=== PATIENT | female | born 1980 | race Caucasian/White ===

== ENCOUNTER 2022-01-21 17:27 | Emergency (ER) | payer MEDICARE, MEDICAID, SELFPAY ==
[2022-01-21 17:35] VITALS: BP 125/77; PULSE 90; TEMP 36.9; O2SAT 97
--- NOTE | 2022-01-21 18:00 | DI.CT_ITS ---
Exam(s) CT LUMBAR SPINE WO EXAM: CT LUMBAR SPINE WO CLINICAL HISTORY: left lower ext paresthesia now right LE paresthesi. TECHNIQUE: Imaging Protocol: Axial computed tomography images with coronal and sagittal reformatted images were created and reviewed COMPARISON: No exams were available for comparison FINDINGS: Bones: The last intervertebral disc space is designated the L5/S1 level for the numbering purpose of this examination. No acute fracture or subluxation is seen. There is mild narrowing of the T12-L1 a nd L1-L2 disc spaces. Endplate osteophytes are seen at multiple levels throughout the lumbar spine. Alignment is satisfactory. No fracture is seen. T12-L1: No disc herniations or bulges are present. No central spinal canal or neural foraminal steno sis. L1-2: No disc herniations or bulges are present. No central spinal canal or neural foraminal stenosi s. L2-3: No disc herniations or bulges are present. No central spinal canal or neural foraminal stenosi s. L3-4: No disc herniations or bulges are present. No central spinal canal or neural foraminal stenosi s. L4-5: No disc herniations or bulges are present. No central spinal canal or right neural foraminal s tenosis. Aywh-af-aeoiutum left neural foraminal stenosis. L5-S1: No disc herniations or bulges are present. No central spinal canal stenosis. Moderate right neural foraminal stenosis is present. There is mild left neural foraminal stenosis. Soft Tissues: The visualized SI joints and sacrum are will maintained. The paraspinal soft tissues a re unremarkable. The patient is status post cholecystectomy. IMPRESSION: Degenerative changes in the lumbar spine resulting in bilateral L5-S1 neural foraminal stenosis, righ t greater than left and left L4-5 neural foraminal stenosis. RADIATION DOSE DELIVERED: 1,377.58mGy.cm Total DLP 1,377.58mGy.cm Total DLP DATA REPOSITORY: All CT scans at this facility are submitted to the National Radiology Data Registry (NRDR) Dose Index Registry (DIR) with the [employer] ([employer]). RADIATION OPTIMIZATION: All CT scans at this facility use at least one of these dose optimization te chniques: automated exposure control; mA and/or kV adjustment per patient size (includes targeted exa ms where dose is matched to clinical indication); or iterative reconstruction.
--- NOTE | 2022-01-21 18:00 | DI.CT_ITS ---
Exam(s) CT HEAD WO EXAM: CT HEAD WO CLINICAL HISTORY: bilat lower ext paresthesia. TECHNIQUE: Imaging Protocol: Axial computed tomography images with coronal and sagittal reformatted images were created and reviewed COMPARISON: No exams were available for comparison FINDINGS: Ventricles and Extra axial spaces: Normal in size and morphology for the patient's age. Hemorrhage: None. Cerebral parenchyma: Normal. Midline shift: None. Brainstem/Cerebellum: Normal. Calvarium: Normal. Visualized Paranasal sinuses/Mastoids: Clear. Soft Tissues: Unremarkable. IMPRESSION: No acute intracranial process. RADIATION DOSE DELIVERED: 805mGy.cm Total DLP DATA REPOSITORY: All CT scans at this facility are submitted to the National Radiology Data Registry (NRDR) Dose Index Registry (DIR) with the [employer] ([employer]). RADIATION OPTIMIZATION: All CT scans at this facility use at least one of these dose optimization te chniques: automated exposure control; mA and/or kV adjustment per patient size (includes targeted exa ms where dose is matched to clinical indication); or iterative reconstruction.
--- NOTE | 2022-01-21 18:20 | ED.GENADUL_ITS ---
Discharge Plan Disposition Patient Disposition: HOME Condition: Stable Discharge Details Clinical Impression: Back pain Primary Care Provider: Megan Christianson ED Provider: Alan Olivarez Home Meds and New Rx's Prescriptions: New cyclobenzaprine 10 mg tablet 10 mg PO TID PRNQty: 20 0RF gabapentin 300 mg capsule 300 mg PO TID Qty: 30 1RF Discharge Instructions Instructions: Back Pain (ED) Additional Instructions: your lab work and cat scan of your head did not show any concerning findings at this time, your cat scan of your lower back showed disc bulging which is likely the cause ofyour pain continue taking ibuprofen and tylenol as needed and follow dosing instructions on packaging do not drive if you take the cyclobenzaprine follow up with your primary care provider within 1-2 weeks if you feel more ill, have fevers or difficulty breathing return to the emergency department you should call the radiology department tomorrow to set up an ultrasound of your legs Medical Decision Making <Minesh Stahl MD - Last Filed: 01/21/22 20:08> 41-year-old female presents with paresthesias of bilateral lower extremities left greater than right over the past 3 weeks, has had multiple falls due to leg weakness and discomfort over the past several weeks, no injuries from those incidences, has been seen at multiple outside hospitals for similar events denies any definitive diagnosis, patient is alert oriented afebrile nontoxic no signs of deformity to any extremities, no midline spinal tenderness, does have some paraspinal lumbar muscle spasm, no signs of infection or trauma, 5 out of 5 strength bilateral upper and lower extremities, no ataxia, slight paresthesia/decreased sensation to light touch in the left lower extremity compared to right, no bowel or bladder dysfunction or saddle anesthesia or paresthesia. Does have a history of bulging disc. Consider lumbar bulging disc versus sciatica versus less likely myositis versus unlikely cauda equina or spinal cord impingement, low suspicion for fracture of lower extremity or pel vis, lower suspicion for stroke. Will obtain labs screening imaging will provide analgesia anti-inflammatory. Close reassessment likely will be discharged home with close follow-up 20: 7 patient feeling better after meds, pending imaging results for disposition <Alan Olivarez MD - Last Filed: 01/21/22 21:14> 41-year-old female presents with paresthesias of bilateral lower extremities left greater than right over the past 3 weeks, has had multiple falls due to leg weakness and discomfort over the past several weeks, no injuries from those in cidences, has been seen at multiple outside hospitals for similar events denies any definitive diagnosis, patient is alert oriented afebrile nontoxic no signs of deformity to any extremities, no midline spinal tenderness, does have some paraspinal lumbar muscle spasm, no signs of infection or trauma, 5 out of 5 strength bilateral upper and lower extremities, no ataxia, slight paresthesia/decreased sensation to light touch in the left lower extremity compared to right, no bowel or bladder dysfunction or saddle anesthesia or paresthesia. Does have a history of bulging disc. Consider lumbar bulging disc versus sciatica versus less likely myositis versus unlikely cauda equina or spinal cord impingement, low suspicion for fracture of lower extremity or pelvis, lower suspicion for stroke. Will obtain labs screening imaging will provide analgesia anti-inflammatory. Close reassessment likely will be discharged home with close follow-up 20: 7 patient feeling better after meds, pending imaging results for disposition ct head unremarkable, ct lumbar spine shows several foraminal stenosis greater on the right at l5/s1 and also l4/l5. She has no saddle anesthesia and is urinating normally so doubt cauda equina and no fevers or ivdu so doubtabscess. Discussed results with the patient and she is stable for d/c, will start gabapentin and to help with sleep and possible associated muscle spasm cyclobenzaprine. She states she feels her legs are more swollen recently as well, has no appreciable swelling or pitting edema, no calf tenderness so unlikely dvt, but will have her return to have an u/s done tomorrow. Advised to f/u with pcp and return precautions given HPI <Minesh Stahl MD - Last Filed: 01/21/22 20:08> General Date/Time Provider Initiated Documentation: 01/21/22 17:33 . HPI Narrative: 41-year-old female presents with left lower extremity paresthesia over the past 3 weeks now involving right lower extremity, has had drop attacks where she falls to the ground, no injuries from these incidences, can ambulate without assistance, denies bowel or bladder dysfunction denies saddle anesthesia or paresthesia. Was evaluated multiple outside hospitals for similar events within the last couple of months. Does not follow-up with a neurologist. Does endorse pain from her lower back down her buttocks onto the left side and endorses history of nerve impingement as a younger adult Related Data Home Medications Medication Instructions Recorded Confirmed cyclobenzaprine 10 mg tablet 10 mg PO TID PRN #20 tabs 01/21/22 gabapentin 300 mg capsule 300 mg PO TID #30 caps 01/21/22 Previous Rx's Medication Instructions Recorded cyclobenzaprine 10 mg tablet 10 mg PO TID PRN #20 tabs 01/21/22 gabapentin 300 mg capsule 300 mg PO TID #30 caps 01/21/22 Allergies Allergy/AdvReac Type Severity Reaction Status Date / Time codeine Allergy Swelling/Ed Unverified 01/21/22 17:43 stephanie doxycycline Allergy Hives Unverified 01/21/22 17:43 egg Allergy Swelling/Ed Unverified 01/21/22 17:43 stephanie General Stated Complaint: Orthopedic CADEN: 3 Review of Systems <Minesh Stahl MD - Last Filed: 01/21/22 20:08> Narrative: Review of Systems Constitutional: negative Eyes: negative ENT: negative Cardiovascular: negative Respiratory: negative Gastrointestinal: negative : negative Musculoskeletal: Back pain, buttock pain, leg paresthesia Skin: negative Neurologic: Leg paresthesia Psych: negative PFSH <Minesh Stahl MD - Last Filed: 01/21/22 20:08> All Active Problems (Updated 01/21/22 @ 21:12 by Alan Olivarez MD) Back pain (Acute) Medical History (Updated 01/21/22 @ 21:12 by Alan Olivarez MD) GERD (gastroesophageal reflux disease) Hiatal hernia Surgical History (Updated 01/21/22 @ 17:42 by Alan Ervin RN) History of hysterectomy Social History Smoking/Tobacco Use Status: Current every day Tobacco Type: cigarettes Smoking risk assessment performed?: Yes Alcohol Intake: never Drug use: Never Substance use type: does not use Do you feel safe in your relationship?: Yes Exam <Minesh Stahl MD - Last Filed: 01/21/22 20:08> Narrative Exam Narrative: Physical Examination General: alert, awake, cooperative, resting comfortably, no acute distress HEENT: normocephalic, atraumatic; PERRL, EOM intact, conjunctiva normal; no nasal discharge; moist mucous membranes, oral and pharyngeal mucosa normal, tolerating secretions Neck: supple, trachea midline; full ROM Chest: normal to inspection Respiratory: normal respiratory effort, speaking in full sentences, clear to auscultation, no wheezing, rales or rhonchi Cardiac: regular rate, regular rhythm, S1S2 intact, no murmurs rubs or gallops GI: abdomen soft, non-tender, non-distended; no palpable mass or hepatosplenomegaly Back: No midline spinal tenderness does have some paraspinal lumbar discomfort consistent with possible muscle spasm Skin: no lesions, rashes or trauma appreciated Neuro: AAOx3, normal speech, moving all extremities; 5 out of 5 strength upper and lower extremities bilaterally, full range of motion of lower extremities, slight decrease sensation to light touch left lower extremity compared to right, no ataxia Extremities: No signs of trauma or infection of the lower extremities Psych: Appropriate mood and affect Course <Minesh Stahl MD - Last Filed: 01/21/22 20:08> Vital Signs Vital signs: Vital Signs Temperature 36.9 C 01/21/22 17:35 Pulse 90 01/21/22 17:35 Blood Pressure 125/77 01/21/22 17:35 Pulse Oximetry 97 01/21/22 17:35 Temperature 36.9 C 01/21/22 17:35 Pulse 90 01/21/22 17:35 Respiratory Effort Non-Labored 01/21/22 17:40 Blood Pressure 125/77 01/21/22 17:35 Blood Pressure Position Supine 01/21/22 17:35 Pulse Oximetry 97 01/21/22 17:35 Oxygen Delivery Method Room Air 01/21/22 17:35 Oxygen Flow Rate 0 01/21/22 17:35 Pain Level 10 01/21/22 17:40 Sign Out <Minesh Stahl MD - Last Filed: 01/21/22 20:08> Sign Out Data: Sign Out Comment: leg paresthesia, likely lumbar radiculopathy; pending CT and dc home Last updated by Minesh Stahl MD at 01/21/22 20:04
[2022-01-21 18:45] LABS: Abs Immature Grans 0.02 10^3/uL (0.0-0.06); Absolute Basophil Count 0.03 10^3/uL (0.0-0.2); Absolute Eosinophil Count 0.07 10^3/uL (0.0-0.7); Absolute Lymphocyte Count 2.59 10^3/uL (1.2-3.4); Absolute Neutrophil Count 3.91 10^3/uL (1.2-6.7); Basophils % 0.4; HCT 42.4 % (36.0-46.0); Immature Grans % 0.3; Lymphocytes % 36.4; MCH 30.4 pg (27.0-33.0); MCV 92 fL (80-95); MPV 10.4 fL (8.0-11.0); Neutrophils % 54.9; Platelet Count 194 10^3/uL (130-400); RBC 4.61 10^6/uL (3.93-5.22); RDW 12.3 % (11.7-14.6); RDW-SD 41.2 fL; WBC 7.12 10^3/uL (4.4-10.8)
[2022-01-21] MEDS: Dexamethasone 10 MG/ML VIAL IVP (18:49)
[2022-01-21] MEDS: LORazepam 20 MG/10 ML VIAL IVP (18:49)
[2022-01-21] MEDS: Lidocaine 5% Patch 1 PATCH TP (18:51)
[2022-01-21 19:05] LABS: ALT 31 U/L (14-59); AST 24 U/L (15-37); Albumin 3.5 g/dL (3.4-5.0); Alkaline Phosphatase 65 U/L (46-116); Anion Gap 7.5 mmol/L (3-11); BUN 10 mg/dL (7-18); Bilirubin, Total 0.4 mg/dL (0.2-1.0); CO2 28.5 mmol/L (21.0-32.0); Calcium 8.6 mg/dL (8.5-10.1); Chloride 103 mmol/L (98-107); Glucose 106 mg/dL (74-106); Potassium 3.9 mmol/L (3.5-5.1); Sodium 139 mmol/L (136-145); Total Protein 6.7 g/dL (6.4-8.2)
--- NOTE | 2022-01-21 20:18 | DI.VRAD_ITS ---
PROCEDURE INFORMATION: Exam: CT Head Without Contrast Exam date and time: 01/21/2022 8:04 PM Age: 41 years old Clinical indication: Patient HX: Bilat lower ext parasthesia TECHNIQUE: Imaging protocol: Computed tomography of the head without contrast. COMPARISON: No relevant prior studies available. FINDINGS: Brain: Ventricles, sulci are within normal limits. There is no evidence of acute hemorrhage, mass or shift. There is no evidence of an acute cortical or major vascular territory infarct. No abnormal extra-axial collections are identified. Cerebral ventricles: No significant ventricular enlargement/hydrocephalus. Paranasal sinuses: Mild mucoperiosteal thickening but no significant sinus opacification or fluid level Mastoid air cells: No significant mastoid opacification Bones/joints: There is no acute bony abnormality Soft tissues: Subcutaneous soft tissues are unremarkable IMPRESSION: No acute findings. Dictated and Authenticated by: Deb Meade MD. Ordering:ОЛЕГ Edge MD
--- NOTE | 2022-01-21 20:22 | DI.VRAD_ITS ---
PROCEDURE INFORMATION: Exam: CT Lumbar Spine Without Contrast Exam date and time: 01/21/2022 8:06 PM Age: 41 years old Clinical indication: Other: Bilat lwr ext parasthesia; Patient HX: L lwr ext parasthesia, now right le parasthesia TECHNIQUE: Imaging protocol: Computed tomography of the lumbar spine without contrast. COMPARISON: No relevant prior studies available. FINDINGS: Bones/joints: No acute fracture. Mild loss of lumbar lordosis is presumed degenerative No significant disc protrusion. No severe spinal canal stenosis. Severe foraminal stenosis greater on the right at L5-S1 and moderate left foraminal stenosis at L4-L5 Soft tissues: Unremarkable. IMPRESSION: Severe foraminal stenosis greater on the right at L5-S1 and moderate right foraminal stenosis at L4-L5 Dictated and Authenticated by: Gerson Jauregui MD. Ordering:ОЛЕГ Edge MD
--- NOTE | 2022-01-21 21:06 | NUR.NOTE ---
US requision faxed to DI for f/u bilat leg swelling, ?dvt.Nursing Note:
[2022-01-21] MEDS: Gabapentin 300 MG CAP PO (21:20)
[2022-01-21] MEDS: Cyclobenzaprine 10 MG TAB, 3 TABS/BTL PO (21:20)
== END 2022-01-21 21:22 | disposition home or self-care (01) ==
PROVIDERS: Emergency Medicine; Emergency Provider Emergency Medicine; PCP Physician Assistant
DX: M54.50 Low back pain, unspecified (principal); R20.2 Paresthesia of skin; M48.07 Spinal stenosis, lumbosacral region; M62.830 Muscle spasm of back; R53.1 Weakness
CPT/HCPCS: 80053; 96374; 96375; 99284; 70450; 72131; 85025; J1100; J3490

== ENCOUNTER → 2022-01-22 09:07 | Outpatient (CLI) | payer MEDICARE, MEDICAID, SELFPAY ==
--- NOTE | 2022-01-22 | DI.US_ITS ---
Exam(s) US EXTREMITY VENOUS BI EXAM: US EXTREMITY VENOUS BI CLINICAL HISTORY: BILAT LEG SWELLING. TECHNIQUE: Bilateral lower extremity venous ultrasound performed using grayscale, color-flow, and sp ectral Doppler analysis. COMPARISON: No exams were available for comparison FINDINGS: The bilateral common femoral, femoral and popliteal veins demonstrate normal compressibility, augment ation, and color Doppler. The posterior tibial veins are patent. The saphenofemoral junctions are unr emarkable. There is no evidence of a Baird's cyst. The soft tissues are unremarkable. IMPRESSION: 1. Right: Negative for DVT 2. Left: Negative for DVT 3. Results of this exam have been verbally communicated with provider. DATA REPOSITORY:
== END ==
PROVIDERS: PCP Physician Assistant; Visit Provider Emergency Medicine
DX: R22.42 Localized swelling, mass and lump, left lower limb (principal); R22.41 Localized swelling, mass and lump, right lower limb
CPT/HCPCS: 99283; 93970; 99284

== ENCOUNTER 2022-01-22 11:02 | Emergency (ER) | payer MEDICARE, MEDICAID, SELFPAY ==
[2022-01-22 11:29] VITALS: BP 119/78; PULSE 85; RESP 17; TEMP 36.9; O2SAT 97
--- NOTE | 2022-01-22 12:30 | ED.GENADUL_ITS ---
Discharge Plan Disposition Patient Disposition: ELOPED Discharge Details Chief Complaint: Recheck Primary Care Provider: Megan Christianson ED Provider: Nell Jovel Home Meds and New Rx's Prescriptions: No Action cyclobenzaprine 10 mg tablet 10 mg PO TID PRNQty: 20 0RF gabapentin 300 mg capsule 300 mg PO TID Qty: 30 1RF Discharge Data Discharge Date/Time-TO BE ENTERED AT DEPARTURE: 01/22/22 13:58 Medical Decision Making Patient is a pleasant 41 year old female presenting today for results of her BLE US for evaluation of possible DVT. She reports that she has been having BLE weakness and pain x 3 weeks. States she has been seen at [facility] as well as [facility]. Was recently seen here and underwent lumbar spine CT and head CT, both of which were negative for acute abnromality. She did have degenerative changes to lumbar spine. US was ordered but not available at that time. She denies any change since her recent evaluation but rather have persisted. She states that symptoms are worse with movement. She has not yet picked up the Flexeril or Gabapentin as was previously prescribed. Reviewed recent note, imaging, labs. US was negative for DVT. Discussed with patient. On exam, patient appears nontoxic. She is in wheelchair, speaking easily, on her phone. VS stable. She appears uncomfortable with movmeent. Exam of her back show no objective signs of infection, trauma. She has diffuse pain from mid thoracic through lumbar spine with no focal areas of pain, step off deformity. Pain does extend laterally, paritcularly over the SI joints bilaterally, worse L>R. She has intact reflexes, equal bilaterally. She has intact strength but strength testing of the LLE causes discomfort from thigh to back. No rash, lower extremity swelling, calf tenderness. 2+ distal pulses with intact sensation. No saddle paresthesias. It sounds, based on pt description, that she has ahd this evaluated at multiple places. I do not see evidence of cauda equina. She does not have risk facttors for osteomyelitis or evidence of [employer] infection. She does have, self reported, hx of remote back injury with herniated disc as a child. She states pain is in this area of this remote trauma but certainly seems to be much more spread out from here as well. Her radiation of pain down the LLE sounds consistent with sciatica. I am going to speak with the patients PCP regarding continued management. Patient requested APAP. Offered Flexeril and Gabapentin, driving, as was prescribed recently. She has not yet picked these up. Patient accepted Gabapentin. Declined Flexeril, declined APAP. Called the PCP, awaiting call back. Patient requesting d/c to home. She does not want to wait. I advised wiating call back from PCP. I do not see evidence of emergent pathology at this time. US negative. Will refer to PT, encourage mobility, NSAIDS, APAP, patches, medications as previously prescribed. Patient eloped prior to completing discharge paperwork. After patient left, PCP office called back. She was last seen by them 12/08/21. This was associated with abdominal issues. she states that patient has been in the past with back pain that can flip from right to left. They will reach out to the patient and schedule f/u for contiued pain as soon as possible. HPI General Mode of arrival: ambulatory . Date/Time Provider Initiated Documentation: 01/22/22 12:19 . Limitations to Documentation: no limitations . Information obtained by: patient, RN notes reviewed and old records reviewed . History of Present Illness 41 year old F presents to the emergency department with the chief complaint of follow up of BLE US after eval for back and LLE pain, described as severe and similar to prior episodes (has had pain x 3 wks), with intensity rated at 10. Quality is described as stabbing, and is localized to the back, left and lower extremity. Patient extremity. Patient started experiencing this week(s) (has had similar episodes, not to this degree, historically, hx of herniated disc) and it has been constant. Immobilization improves symptom(s), Movement worsens symptoms . Patient notes no other symptoms.. Patient did receive the following treatments prior to arrival, other (APAP this morning, has not yet picke dup prescriptions from recent ED eval) Related Data Home Medications Medication Instructions Recorded Confirmed cyclobenzaprine 10 mg tablet 10 mg PO TID PRN #20 tabs 01/21/22 01/22/22 gabapentin 300 mg capsule 300 mg PO TID #30 caps 01/21/22 01/22/22 Previous Rx's Medication Instructions Recorded cyclobenzaprine 10 mg tablet 10 mg PO TID PRN #20 tabs 01/21/22 gabapentin 300 mg capsule 300 mg PO TID #30 caps 01/21/22 Allergies Allergy/AdvReac Type Severity Reaction Status Date / Time codeine Allergy Swelling/Ed Unverified 01/22/22 11:34 stephanie doxycycline Allergy Hives Unverified 01/22/22 11:34 egg Allergy Swelling/Ed Unverified 01/22/22 11:34 stephanie General Stated Complaint: Recheck CADEN: 5 Review of Systems Constitutional Constitutional: Reports as per HPI, Denies chills, Denies fever(s) and Denies frequent falls Cardiovascular Cardiovascular: Denies chest pain, Denies dyspnea and Denies dyspnea on exertion Respiratory Respiratory: Denies cough, Denies dyspnea and Denies dyspnea on exertion Gastrointestinal Gastrointestinal: Denies abdominal pain, Denies change in bowel habits and Denies fecal incontinence Genitourinary Genitourinary: Reports as per HPI, Denies urinary incontinence and Denies urinary hesitancy Musculoskeletal Musculoskeletal: Reports as per HPI, Reports back pain, Denies muscle weakness, Denies numbness, Reports stiffness and Denies tingling Integumentary/Breasts Skin/Breast: Reports as per HPI and Denies rash Neurologic Neurologic: Reports as per HPI, Denies frequent falls, Denies numbness, Denies sensory deficit, Denies tingling and Denies paresthesias PFSH All Active Problems (Updated 01/21/22 @ 21:12 by Alan Olivarez MD) Back pain (Acute) Medical History (Updated 01/21/22 @ 21:12 by Alan Olivarez MD) GERD (gastroesophageal reflux disease) Hiatal hernia Surgical History (Updated 01/21/22 @ 17:42 by Alan Ervin RN) History of hysterectomy Social History Smoking/Tobacco Use Status: Current every day Tobacco Type: cigarettes Smoking risk assessment performed?: Yes Alcohol Intake: never Drug use: Never Substance use type: does not use Do you feel safe in your relationship?: Yes Exam Const General: cooperative, healthy appearing, comfortable (sittting in wheelchair, on phone), no acute distress, well developed and well groomed Nutritional Appearance: well nourished and obese Orientation: alert and awake Eyes General: appearance normal, both eyes and all related structures Neck Neck: normal visual inspection and full ROM Resp Effort & Inspection: normal respiratory effort and able to speak in complete sentences Cardio Rate: regular rate Rhythm: regular rhythm Back/Spine/Pelvis Back: no CVA tenderness Cervical Spine: normal cervical lordosis, cervical ROM normal, No cervical spinal tenderness and No step off deformity Thoracic/Lumbar Spine: thoracic and lumbar spine normal to inspection, thoraco- lumbar ROM normal (pain with ROM fairly diffusely), paraspinal tenderness, thoracic spinal tenderness, lumbar spinal tenderness and other (fairly diffuse pain from mid thoracic down with no erythema, wamrth, step o) Skin General skin exam: no rashes or lesions noted Neuro General: patient alert and patient awake Cognition: normal cognition Speech: speech normal Gait: antalgic (walks slightly bent forward holding her back) Motor: muscle tone normal throughout, strength 5/5 throughout (pain with resistance testing of the LLE but able to do so), no movement abnormalities noted and no fasciculations Sensory Exam: no sensory deficits noted (no saddle paresthesias) DTR's: Rt Patellar: 2+, Lt Patellar: 2+, Rt Ankle: 2+ and Lt Ankle: 2+ Extrem General: normal to inspection, full ROM, capillary refill normal, no joint enlargement, no pedal edema and no calf tenderness Psych Appearance: grossly normal and well kempt Mental Status: mental status grossly normal Speech and Movement: speech and movement normal Course Vital Signs Vital signs: Vital Signs Temperature 36.9 C 01/22/22 11:29 Pulse 85 01/22/22 11:29 Respiratory Rate 17 01/22/22 11:29 Blood Pressure 119/78 01/22/22 11:29 Pulse Oximetry 97 01/22/22 11:29 Temperature 36.9 C 01/22/22 11:29 Temperature Source Temporal Artery Scan 01/22/22 11:29 Pulse 85 01/22/22 11:29 Respiratory Rate 17 01/22/22 11:29 Respiratory Effort Non-Labored 01/22/22 11:33 Blood Pressure 119/78 01/22/22 11:29 Blood Pressure Position Sitting 01/22/22 11:29 Pulse Oximetry 97 01/22/22 11:29 Oxygen Delivery Method Room Air 01/22/22 11:29 Oxygen Flow Rate 0 01/22/22 11:29 Pain Level 10 01/22/22 11:29 Comment 01/22/22 11:29
[2022-01-22] MEDS: Gabapentin 300 MG CAP PO (13:28)
== END 2022-01-22 13:58 ==
PROVIDERS: Emergency Provider Physician Assistant; PCP Physician Assistant
DX: M79.661 Pain in right lower leg (principal); M79.662 Pain in left lower leg; M54.50 Low back pain, unspecified; M54.6 Pain in thoracic spine; E11.9 Type 2 diabetes mellitus without complications; F17.210 Nicotine dependence, cigarettes, uncomplicated; Z53.20 Procedure and treatment not carried out because of patient's decision for unspecified reasons
CPT/HCPCS: 99283; 99284

== ENCOUNTER 2022-10-31 07:41 | Outpatient (CLI) | payer MEDICARE, MEDICAID, SELFPAY ==
[2022-10-31 07:55] VITALS: BP 141/96; PULSE 97; RESP 20; TEMP 36.7; O2SAT 94
--- NOTE | 2022-10-31 08:25 | DI.RAD_ITS ---
Exam(s) XR PAIN CLINIC LUMBAR SP 2V EXAM: XR PAIN CLINIC LUMBAR SP 2V CLINICAL HISTORY: Dx: Lumbar Radiculopathy TECHNIQUE: 2D and realtime digital imaging was performed. CONTRAST MATERIAL: Refer to procedure report. COMPARISON: No exams were available for comparison FINDINGS: Fluoroscopy was provided for Dr. Quintanilla during the performance of a lumbar epidural steroid injection. Please refer to the procedure report for complete details. Ka,r=15.5 mGy IMPRESSION:
[2022-10-31 08:38] VITALS: BP 139/97; PULSE 87; RESP 22; O2SAT 100
[2022-10-31] MEDS: methylPREDNISolone ACETATE 80 MG/ML VIAL IJ (08:47)
[2022-10-31] MEDS: Omnipaque 240 MG/ML 50 ML BTL IJ (08:47)
--- NOTE | 2022-10-31 09:13 | PDOC.PAIN_ITS ---
Date of service: 10/31/22 Time of Service: 08:30 Pain Managment Procedure Note Procedure Note Procedure Note: Lumbar Epidural Steroid Injection Procedure Note COMMENTS: I previously evaluated her in the office. She has low back pain with pain radiating down the left leg. Pre-procedure pain VAS was 8/10 Dx: Lumbosacral radiculopathy Denise Ramires has been referred to the [facility] for lumbar epidural steroid injection. The patient was greeted by the nurse who verified patients name and . Patient was then taken to the fluoroscopy suite. The patient was interviewed and the medial record reviewed. There were no medical, pharmacologic, radiographic, or other structural contraindications to attempting fluoroscopically guided lumbar epidural steroid injection. Risks and expected side effects as well as potential benefits of the procedure were reviewed and voiced concerns expressed. The patient consent form was signed and witnessed. Standard patient time-out procedure was performed. The patient was placed in the prone position on the fluoroscopy table and automated blood pressure cuff and pulse oximeter applied. The skin entry point for entering/approaching the epidural space at L5-S1 and marked. Following thorough chlorhexadine preparation of the skin and draping and 1% lidocaine infiltration of the skin entry point and subcutaneous tissues, a 18 gauge Touhy needle was placed under fluoroscopic guidance and with loss of resistance technique into the epidural space. Needle tip placement and depth were aided and confirmed by fluoroscopy. There was no paresthesia or return of blood or CSF through the needle. 1 cc's of Omnipaque 240 was injected with clear epidural spread confirmed with fluoroscopy. 80mg depomedrol was injected. There was not any unusual discomfort expressed by Denise Ramires. Patient's vital signs were stable throughout the procedure and were as recorded in nursing records. Follow up plans and appointments were discussed with patient. Post procedure instruction was given as documented in nursing records and having met discharge criteria and was discharged from the [facility]. COMMENTS: If this procedure is helpful (at least 50% improvement of pain and/or function for at least 3 months), it can be completed up to 4 times per 12 months. Post-procedure pain VAS to the left leg was 0/10. Lobo Quintanilla DO, MPH [facility]
== END 2022-10-31 07:42 | disposition home or self-care (01) ==
LOC: PC 07:42
PROVIDERS: PCP Physician Assistant; Visit Provider Preventive Medicine Occupational Medicine
DX: M54.17 Radiculopathy, lumbosacral region (principal); M54.50 Low back pain, unspecified
CPT/HCPCS: 62323; 72100; J1040; Q9967

== ENCOUNTER 2023-01-31 17:51 | Emergency (ER) | payer MEDICARE, MEDICAID, SELFPAY ==
[2023-01-31] VITALS (18 sets, daily range): BP systolic 123–149; BP diastolic 73–117; PULSE 76–89; RESP 11–25; TEMP 36.3–36.8; O2SAT 95–99
--- NOTE | 2023-01-31 17:45 | RT.EKG_ITS ---
APPROVED REPORT Exam: Resting ECG Reason for Exam: Dizzy Patient Location: E HR:83 bpm ECG Measurements Heart Rate [address] 149 P 20 QRSd 82 QRS 31 QT 365 T 35 QTc 429 Conclusion Sinus rhythm... V-rate 60- [address] segment or T wave abnormalities to suggest occlusive [place]
[2023-01-31] MEDS: Lactated Ringers 1,000 ML 1000 ML IV (18:54)
[2023-01-31] MEDS: diazePAM 10 MG/2 ML SYR 5 MG IVP (18:54)
[2023-01-31 19:02] LABS: Abs Immature Grans 0.03 10^3/uL (0.0-0.06); Absolute Basophil Count 0.03 10^3/uL (0.0-0.2); Absolute Eosinophil Count 0.06 10^3/uL (0.0-0.7); Absolute Lymphocyte Count 2.37 10^3/uL (1.2-3.4); Absolute Neutrophil Count 5.75 10^3/uL (1.2-6.7); Basophils % 0.3; Eosinophils % 0.7; HCT 44.5 % (36.0-46.0); HGB 14.6 g/dL (11.2-15.7); Immature Grans % 0.3; Lymphocytes % 27.1; MCH 29.9 pg (27.0-33.0); MCHC 32.8 % (32.0-36.0); MCV 91 fL (80-95); MPV 9.9 fL (8.0-11.0); Monocytes % 5.7; Neutrophils % 65.9; Platelet Count 262 10^3/uL (130-400); RBC 4.88 10^6/uL (3.93-5.22); RDW 12.3 % (11.7-14.6); RDW-SD 41.2 fL; WBC 8.74 10^3/uL (4.4-10.8)
[2023-01-31 19:19] LABS: ALT 28 U/L (14-59); AST 18 U/L (15-37); Albumin 3.8 g/dL (3.4-5.0); Alkaline Phosphatase 83 U/L (46-116); Anion Gap 10.3 mmol/L (3-11); BUN 6 mg/dL (7-18); Bilirubin, Total 0.6 mg/dL (0.2-1.0); CO2 27.7 mmol/L (21.0-32.0); CREATININE 0.9 mg/dL (0.55-1.02); Calcium 9.2 mg/dL (8.5-10.1); Chloride 102 mmol/L (98-107); Estimated GFR 81.86 (mL/min/1.73m2); Glucose 105 mg/dL (74-106); Potassium 3.8 mmol/L (3.5-5.1); Sodium 140 mmol/L (136-145); Total Protein 7.3 g/dL (6.4-8.2)
[2023-01-31 19:22] LABS: Troponin I < 50 ng/L (<or=60)
[2023-01-31 19:38] LABS: Bilirubin Negative (Negative); Blood Moderate (Negative); Clarity Sl Cloudy (Clear); Glucose Negative (Negative); Ketones 15 mg/dL (Negative); Leukocyte Esterase Small (Negative); Nitrite Positive (Negative); Specific Gravity 1.025 (1.005-1.025); Urobilinogen 0.2 mg/dL (Up to 0.2); pH 5.5 (5-8)
[2023-01-31 19:45] LABS: WBC >50 HPF (0-5)
[2023-01-31 19:46] LABS: Bacteria Few HPF (Negative); C & S Indicated? Yes; Casts Negative LPF (Negative); Crystals Negative HPF (Negative); Epithelial Cells Rare HPF (Negative); Mucus Negative (Negative)
--- NOTE | 2023-01-31 20:11 | ED.GENADUL_ITS ---
Discharge Plan Disposition Patient Disposition: Home Discharge Details Clinical Impression: Urinary tract infection, Dizziness, Nausea & vomiting Primary Care Provider: Megan Christianson ED Provider: Nuha Cantor Home Meds and New Rx's Prescriptions: New ondansetron HCl 4 mg tablet 4 mg PO .q8p Qty: 10 0RF cefuroxime axetil 500 mg tablet 500 mg PO BID Qty: 14 0RF meclizine 25 mg tablet 25 mg PO TID Qty: 10 0RF Continued acetaminophen 500 mg capsule 500 mg PO Q6H PRN ibuprofen 200 mg tablet 200 mg PO Q6H PRN cyclobenzaprine 10 mg tablet 10 mg PO TID PRNQty: 20 0RF Discharge Instructions Instructions: Urinary Tract Infection in Women (ED), Acute Nausea and Vomiting (ED), Dizziness (ED) Additional Instructions: Take the cefuroxime as prescribed for urinary tract infection, yogurt daily while on antibiotic Take meclizine as needed for dizziness as needed, do not drive or vehicle for 8 hours after taking this Take Zofran as needed for nausea and vomiting Return earlier should you have new or worsening complaints Keep yourself hydrated, at least eight 8 ounce glasses of water daily Referrals: Megan Christianson [Primary Care Provider] - Discharge Data Discharge Date/Time-TO BE ENTERED AT DEPARTURE: 02/01/23 01:34 Medical Decision Making 42-year-old female presenting with nausea and vomiting Denies fever or chills. Denies any chest pain or shortness of breath, symptoms present for the past 2 days. Exam is benign, nonfocal neurological exam No abdominal tenderness No CVA tenderness, vital stable Labs do not show evidence of significant acute abnormality but patient does have evidence of urinary tract infection we will give a gram of ceftriaxone treat outpatient with cefdinir Urine will be sent for culture Return precautions reviewed and patient expressed understanding HPI General Date/Time Provider Initiated Documentation: 01/31/23 18:12 . HPI Narrative: This 42-year-old female presents with nausea, vomiting, dizziness that started today. Has vomited 6-7 times. Denies any blood in vomitus. Denies any chance of . Denies any falls or head injuries. Denies any chance of . Reports mild burning with urination. Sexually active and monogamous per patient. Denies any flank pain. Denies any abdominal pain. Related Data Home Medications Medication Instructions Recorded Confirmed cyclobenzaprine 10 mg tablet 10 mg PO TID PRN #20 tabs 01/21/22 10/31/22 acetaminophen 500 mg capsule 500 mg PO Q6H PRN 10/05/22 10/31/22 ibuprofen 200 mg tablet 200 mg PO Q6H PRN 10/05/22 10/31/22 cefuroxime axetil 500 mg tablet 500 mg PO BID #14 tabs 01/31/23 meclizine 25 mg tablet 25 mg PO TID #10 tabs 01/31/23 ondansetron HCl 4 mg tablet 4 mg PO .q8p #10 tabs 01/31/23 Previous Rx's Medication Instructions Recorded cyclobenzaprine 10 mg tablet 10 mg PO TID PRN #20 tabs 01/21/22 cefuroxime axetil 500 mg tablet 500 mg PO BID #14 tabs 01/31/23 meclizine 25 mg tablet 25 mg PO TID #10 tabs 01/31/23 ondansetron HCl 4 mg tablet 4 mg PO .q8p #10 tabs 01/31/23 Allergies Allergy/AdvReac Type Severity Reaction Status Date / Time codeine Allergy Swelling/Ed Unverified 10/31/22 07:51 stephanie doxycycline Allergy Hives Unverified 10/31/22 07:51 egg Allergy Swelling/Ed Unverified 10/31/22 07:51 stephanie General Stated Complaint: Nausea/Vomit/Diar CADEN: 3 PFSH All Active Problems (Updated 01/31/23 @ 20:18 by DARIANA Soares) Urinary tract infection (Acute) Dizziness (Acute) Nausea & vomiting (Acute) Lumbar radiculopathy (Acute) Medical History Chest pain Chronic pain Class 3 severe obesity due to excess calories with body mass index (BMI) of 40.0 to 44.9 in adult Depression Dyspnea Endometriosis Epigastric pain alcohol syndrome GERD (gastroesophageal reflux disease) Hiatal hernia Hypertriglyceridemia Insomnia Irregular heart beat Limited literacy Migraines Muscle weakness Post-operative nausea and vomiting PUD (peptic ulcer disease) Transfusion history Vitamin B12 deficiency Vitamin D deficiency Surgical History H/O laparoscopy H/O tubal ligation History of hysterectomy Hx of cholecystectomy Social History Smoking/Tobacco Use Status: Former Tobacco Use Quit Date: 04/04/20 Smoking risk assessment performed?: Yes Alcohol Intake: never Drug use: Never Substance use type: does not use Housing: house Do you feel safe in your relationship?: Yes Course Vital Signs Vital signs: Vital Signs Temperature 36.3 C L 01/31/23 17:57 Pulse 89 01/31/23 17:57 Respiratory Rate 18 01/31/23 17:57 Pulse Oximetry 98 01/31/23 17:57 Temperature 36.8 C 01/31/23 18:03 Temperature Source Oral 01/31/23 18:03 Pulse 82 01/31/23 18:03 Respiratory Rate 16 01/31/23 18:51 Respiratory Effort Normal 01/31/23 18:51 Respiratory Depth Normal 01/31/23 18:51 Respiratory Pattern Normal 01/31/23 18:51 Blood Pressure 137/90 01/31/23 18:03 Blood Pressure Position Supine 01/31/23 18:03 Pulse Oximetry 99 01/31/23 18:03 Oxygen Delivery Method Room Air 01/31/23 18:03 Oxygen Flow Rate 0 01/31/23 18:03 Lab/Test Results Lab/Test Results: 01/31/23 19:34 Urine - Reflex from Ua Urine Culture - Pending Laboratory Tests Range/Units 01/31/23 01/31/23 01/31/23 18:50 18:50 19:34 WBC (4.4-10.8) 10^3/uL 8.74 RBC (3.93-5.22) 10^6/uL 4.88 Hgb (11.2-15.7) g/dL 14.6 Hct (36.0-46.0) % 44.5 MCV (80-95) fL 91 MCH (27.0-33.0) pg 29.9 MCHC (32.0-36.0) % 32.8 RDW (11.7-14.6) % 12.3 Plt Count (130-400) 10^3/uL 262 MPV (8.0-11.0) fL 9.9 Immature Gran % 0.3 Neutrophils % 65.9 Lymphocytes % 27.1 Monocytes % 5.7 Eosinophils % 0.7 Basophils % 0.3 Nucleated RBC % (0.0-0.3) % 0.0 Absolute Neutrophils (1.2-6.7) 10^3/uL 5.75 Absolute Lymphocytes (1.2-3.4) 10^3/uL 2.37 Absolute Monocytes (0.1-0.8) 10^3/uL 0.50 Absolute Eosinophils (0.0-0.7) 10^3/uL 0.06 Absolute Basophils (0.0-0.2) 10^3/uL 0.03 Sodium (136-145) mmol/L 140 Potassium (3.5-5.1) mmol/L 3.8 Chloride (98-107) mmol/L 102 Carbon Dioxide (21.0-32.0) mmol/L 27.7 Anion Gap (3-11) mmol/L 10.3 BUN (7-18) mg/dL 6 L Creatinine (0.55-1.02) mg/dL 0.9 Est GFR (CKD-EPI 2020) (mL/min/1.73m2) 81.86 Glucose (74-106) mg/dL 105 Calcium (8.5-10.1) mg/dL 9.2 Magnesium (1.8-2.4) mg/dL 2.0 Total Bilirubin (0.2-1.0) mg/dL 0.6 AST (15-37) U/L 18 ALT (14-59) U/L 28 Alkaline Phosphatase (46-116) U/L 83 Troponin I (<or=60) ng/L < 50 Total Protein (6.4-8.2) g/dL 7.3 Albumin (3.4-5.0) g/dL 3.8 Urine Color (Yellow) Yellow Urine Clarity (Clear) Sl Cloudy Urine pH (5-8) 5.5 Ur Specific [place] (1.005-1.025) 1.025 Urine Protein (Negative) mg/dL 100 H Urine Ketones (Negative) mg/dL 15 H Urine Blood (Negative) Moderate H Urine Nitrite (Negative) Positive H Urine Bilirubin (Negative) Negative Urine Urobilinogen (Up to 0.2) mg/dL 0.2 Ur Leukocyte Esterase (Negative) Small H Urine RBC (0-2) HPF 5-10 H Urine WBC (0-5) HPF >50 H Ur Epithelial Cells (Negative) HPF Rare Urine Crystals (Negative) HPF Negative Urine Bacteria (Negative) HPF Few Urine Casts (Negative) LPF Negative Urine Mucus (Negative) Negative Ur Culture Indicated? Yes Urine Glucose (Negative) mg/dL Negative
[2023-01-31] MEDS: cefTRIAXone 1 GM/50 ML BAG IVPB (20:19)
[2023-01-31] MEDS: Ondansetron O.D.T. 4 MG TABEF, 3 TABS/BTL PO (20:53)
== END 2023-02-01 01:34 | disposition home or self-care (01) ==
PROVIDERS: Emergency Provider Physician Assistant; PCP Physician Assistant
DX: R42 Dizziness and giddiness (principal); R11.2 Nausea with vomiting, unspecified; N39.0 Urinary tract infection, site not specified; B96.20 Unspecified Escherichia coli [E. coli] as the cause of diseases classified elsewhere
CPT/HCPCS: 80053; 87077; 93005; 96361; 96365; 96375; 99284; 81003; 81015; 83735; 84484; 85025; 87086; 87186; 93010; J0696; J3360

== ENCOUNTER 2023-04-23 11:00 | Emergency (ER) | payer MEDICARE, SELFPAY ==
[2023-04-23 11:11] VITALS: BP 150/111; PULSE 97; RESP 18; TEMP 36.4; O2SAT 98
--- OUTSIDE RECORDS SUMMARY | 2023-04-23 11:14 | XMS_ITS | CCD ---
Author Name Unknown Address [address] [place] [address] [id number] Organization Unknown Address [address] [place] [address] [id number] Care Team Providers Care Offshoring Manager Name Role Phone SHAWN FREEMAN Attending Physician [phone] SHAWN FREEMAN Er Physician [phone] MAURA Lopez Registered Nurse [phone] Vital Signs Vital Sign Value Unit Date/Time Recent/Initial ? BMI (Body Mass Index) 44.29 kg/m^2 01/14/2022 23: 12 Initial VS Weight Measured 250 lbs 01/14/2022 23:12 Ini tial VS Height 63 in 01/14/2022 23:12 Initial VS BSA (Body Surface Area) 2.25 m^2 01/14/2022 2 3:12 Initial VS BP Systolic 143 mmHg 01/14/2022 23:12 Initial VS BP Diastolic 93 mmHg 01/14/2022 23:12 Initia l VS Respiratory Rate 18 bpm 01/14/2022 23:12 In itial VS Heart Rate 71 bpm 01/14/2022 23:12 Initial VS O2 % BldC Oximetry 97 % 01/14/2022 23:12 Initial VS Body Temperature 36.4 degrees 01/14/2022 23:12 In itial VS BP Systolic 124 mmHg 01/15/2022 00:56 Most Re cent VS BP Diastolic 87 mmHg 01/15/2022 00:56 Most R ecent VS Respiratory Rate 16 bpm 01/15/2022 00:[address] Recent VS Heart Rate 71 bpm 01/15/2022 00:56 Most Rec ent VS O2 % BldC Oximetry 100 % 01/15/2022 00:56 Most Recent VS Allergies Allergy Code Allergy Type Reaction Status DOXYCYCLINE 3640 Drug allergy Active EGGS 0 Drug allergy Active CODEINE 2670 Drug allergy Active Procedures Unknown or Not Available. History of Immunizations Unknown or Not Available. Problems Problem Code Start Date Resolved Date Status Ulcer [id number] 01/14/2022 Resolved GERD [id number] 01/14/2022 Resolved Muscle weakness [id number] 01/14/2022 Resolved Results BASIC METABOLIC PANEL (BMP) - Collect Date/Time: 01/14/2022 23:54 Test Name Code Test Result Test Units Test Ref Rang e GLUCOSE 2345-7 115 mg/dL L=70 H=116 BUN 3094-0 10 mg/dL L=6 H=25 CREATININE 2160-0 0.89 mg/dL L=0.51 H=0.95 SODIUM SERUM 2951-2 136 mmol/L L=136 H=145 POTASSIUM SERUM 2823-3 4.0 mmol/L L=3.4 H=5 .2 CHLORIDE SERUM 2075-0 102 mmol/L L=96 H=110 CARBON DIOXIDE (CO2) 2028-9 29 mmol/L L=22 H=34 ANION GAP 57178-7 5.3 mmol/L CALCIUM SERUM 41989-2 8.8 mg/dL L=8.2 H=10. 2 AGE 41 years eGFR (non-Afr.Amer.) 77774-3 70 mL/min eGFR (Afr-Citizen Of [place]) 76467-5 85 mL/min TROPONIN HIGH SENSITIVITY* - Collect Date/Time: 01/14/2022 23:54 Test Name Code Test Result Test Units Test Ref Rang e TROPONIN HS <4.0 pg/mL L=0.0 H=60.4 Specimen seq. Random N/A CBC W/ DIFFERENTIAL* - Colle ct Date/Time: 01/14/2022 23:54 Test Name Code Test Result Test Units Test Ref Rang e WBC 6690-2 7.99 th/cmm L=5.00 H=10.00 NEUT % 58.7 % L=40.0 H=80.0 LYMPH % 31.7 % L=10.0 H=50.0 MONO % 08340-6 8.1 % L=2.0 H=12.0 EOS % 1.1 % L=0.0 H=8.0 BASO % 0.3 % L=0.0 H=3.0 IG % 2514-8 0.1 % L=0.0 H=1.1 NRBC % 23437-4 0.0 % L=0.0 H=0.0 NEUT abs count 751-8 4.7 th/cmm L=1.6 H=8. 4 LYMPH abs count 731-0 2.5 th/cmm L=1.5 H=4 .0 MONO abs count 742-7 0.7 th/cmm L=0.2 H=1. 0 EOS abs count 711-2 0.1 th/cmm L=0.0 H=0.5 BASO abs count 704-7 0.0 th/cmm L=0.0 H=0. 2 IG abs count 73889-9 0.0 th/cmm L=0.0 H=0.1 NRBC abs count 84179-9 0.0 mil/cmm L=0.0 H=0. 0 RBC 789-8 4.47 mil/cmm L=3.90 H=5.40 HEMOGLOBIN 718-7 13.6 gm/dL L=12.0 H=16.0 HEMATOCRIT 4544-3 42 % L=37 H=47 MCV 787-2 94 fL L=82 H=92 MCH 785-6 30.4 pg L=27.0 H=31.0 MCHC 786-4 32.5 % L=32.0 H=36.0 RDW-SD 788-0 42.2 fL L=39.0 H=49.0 PLATELET COUNT 777-3 200 th/cmm L=150 H=45 0 Active Medications Medications Administered During Visit Medication Dose Units Frequency Route Date/Time of Last Dose LORazepam TABLET: 0.5MG 1 MG X1 PO 01/14/2022 23:55 Encounters Encounter Diagnosis Diagnosis Code Start Date Weakness R531 01/14/2022 Social History Unknown or Not Available. Patient Decision Aids Unknown or Not Available. Discharge Instructions You were admitted to [facility] on 01/14/2022 23:01 with a principal diagnosis of Weakness You had the following tests done:BASIC METABOLIC PANEL (BMP)CBC W/ DIFFERENTIAL*TROPONIN HIGH SENSITIVITY* You were discharged from [facility] on 01/15/2022 00:59 Should you have any questions prior to discharge, please contact a member of your healthcare team. If you have left the hospital and have any questions, please contact your primary care physician. Chief Complaint and Reason For Visit Chief Complaint Date of Onset WEAKNESS 01/14/2022 Function Status Unknown or Not Available. Plan of Care Unknown or Not Available. Referral/Transition of Care Unknown or Not Available.
--- NOTE | 2023-04-23 11:20 | ED.GENADUL_ITS ---
Discharge Plan Disposition Patient Disposition: Home Condition: Stable Discharge Details Clinical Impression: Lumbar radiculopathy Primary Care Provider: Megan Christianson ED Provider: Johnny Alvarado Home Meds and New Rx's Prescriptions: New cyclobenzaprine 10 mg tablet 10 mg PO TID PRN (Reason: muscle spasm) Qty: 30 0RF ketorolac 10 mg tablet 10 mg PO QID 5 Days Qty: 20 0RF Continued acetaminophen 500 mg capsule 500 mg PO Q6H PRN ibuprofen 200 mg tablet 200 mg PO Q6H PRN Discharge Instructions Instructions: Cyclobenzaprine (By mouth), Ketorolac (By mouth), Back Pain (ED) Additional Instructions: You were seen in the emergency department for your fall at home twisting your low back in the setting of chronic lumbar radiculopathy. You received IV Tylenol, ketorolac a strong anti-inflammatory that I have also sent a prescrip tion for in pill form. Please do not mix this with other anti-inflammatories. I also gave you 1 dose of a steroid that should help with the inflammation in your back. I have sent you a muscle relaxer called cyclobenzaprine to use as needed, apply gentle heat to your back, the most curative thing you can do for your back pain long-term is to see physical therapy. Do not drive on the cyclobenzaprine. Please return to the ED for any urinary retention, bowel incontinence, severe increasing back pain with fever. Referrals: Megan Christianson [Primary Care Provider] - Discharge Data Discharge Date/Time-TO BE ENTERED AT DEPARTURE: 04/23/23 12:52 Medical Decision Making This dictation utilizes [id number]-kf-iles dictation software and may contain unedited grammatical errors. 42 y/o F presents to ED today with a chief complaint of acute on chronic lumbar back pain after falling around the house- with minor abrasions to posterior L calf. 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 Patients' medical history: Obesity, known lumbar radiculopathy. Family and social history: noncontributory. Pertinent exam findings / vital signs include neurovascularly intact in bilateral lower extremities, has lumbar paraspinal tenderness without step-off or crepitus, no saddle anesthesia. Differential / pathologies of concern include lumbar strain sprain, abrasions, not cauda equina. Diagnostic studies of: -none. Interventions of: -Tylenol, Toradol, Cyclobenzaprine, Prednisone, LidoDerm. ED Course: Patient was feeling much better after her medications, closed herself without issue and is sitting upright on bed waiting to go home. I did public relations counselor her that I sent 5 days of Toradol as well as cyclobenzaprine, counseled her on applying gentle heat to the area and following up with physical therapy, strict return criteria for any signs of cauda equina. Findings not consistent with cauda equina or spinal epidural abscess, not consistent with vertebral fracture. Disposition of Lumbar Radiculopathy. Patient verbalized understanding of the plan and return to ED criteria and engaged in shared decision making. Medical Records Medical records reviewed: Yes I reviewed the patient's medical records. HPI General Date/Time Provider Initiated Documentation: 04/23/23 11:20 . HPI Narrative: 42 year-old female presents to ED today by POV/ambulating with a chief complaint of low back pain, and abrasions to L posterior thigh with onset just prior to arrival. Patient states she had her foot slip into a heating grate at home and may have exacerbated her chronic disk problems in her low back. 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 Severity is described as 7/10. Palliating factors include nothing specific attempted. Provoking factors include nothing specific. Events leading up to the incident/Associated Symptoms: Patient had attempted a lumbar injection of cortisone but stated it didn't work on her, does not see physical therapy. Patient not anticoagulated. Related Data Home Medications Medication Instructions Recorded Confirmed acetaminophen 500 mg capsule 500 mg PO Q6H PRN 10/05/22 04/23/23 ibuprofen 200 mg tablet 200 mg PO Q6H PRN 10/05/22 04/23/23 cyclobenzaprine 10 mg tablet 10 mg PO TID PRN muscle spasm #30 04/23/23 tabs ketorolac 10 mg tablet 10 mg PO QID 5 days #20 tabs 04/23/23 Previous Rx's Medication Instructions Recorded cyclobenzaprine 10 mg tablet 10 mg PO TID PRN muscle spasm #30 04/23/23 tabs ketorolac 10 mg tablet 10 mg PO QID 5 days #20 tabs 04/23/23 Allergies Allergy/AdvReac Type Severity Reaction Status Date / Time codeine Allergy Swelling/Ed Unverified 04/23/23 11:15 stephanie doxycycline Allergy Hives Unverified 04/23/23 11:15 egg Allergy Swelling/Ed Unverified 04/23/23 11:15 stephanie General Stated Complaint: Nk/Back Pain CADEN: 3 Review of Systems All systems reviewed & are unremarkable except as noted in HPI and below PFSH All Active Problems (Updated 04/23/23 @ 12:42 by DARIANA Lundberg) Lumbar radiculopathy (Acute) Lumbar radiculopathy (Acute) Medical History Chest pain Chronic pain Class 3 severe obesity due to excess calories with body mass index (BMI) of 40.0 to 44.9 in adult Depression Dyspnea Endometriosis Epigastric pain alcohol syndrome GERD (gastroesophageal reflux disease) Hiatal hernia Hypertriglyceridemia Insomnia Irregular heart beat Limited literacy Migraines Muscle weakness Post-operative nausea and vomiting PUD (peptic ulcer disease) Transfusion history Vitamin B12 deficiency Vitamin D deficiency Surgical History H/O laparoscopy H/O tubal ligation History of hysterectomy Hx of cholecystectomy Social History Smoking/Tobacco Use Status: Former Tobacco Use Quit Date: 04/04/20 Smoking risk assessment performed?: Yes Alcohol Intake: never Drug use: Never Substance use type: does not use Housing: house Do you feel safe in your relationship?: Yes Exam Narrative Exam Narrative: GENERAL APPEARANCE: Well-nourished, non-toxic, awake and alert, atraumatic, no acute distress. SKIN: Warm, pink, dry, intact, without rashes/lesions/ulcerations. HEAD: Normocephalic, atraumatic, normal hair distribution for gender/age. EYES: Pupils PERRLA, EOMs intact without nystagmus, normal conjunctiva, no exudates on lids/lashes. ENT: Nares patent, no circumoral cyanosis, no facial swelling NECK: Supple, trachea midline, painless cervical ROM. LUNGS/CHEST: Non-labored respirations, normal A/P diameter, symmetrical expansion, no chest wall deformity HEART (CV/PV): No peripheral edema, no JVD. ABDOMEN: Soft, non-distended, no guarding. MSK: Normal ROM, no swelling/deformity to bilateral UEs or LEs, moving all extremities without weakness, no cyanosis, spine midline without tenderness, normal curvature. Tenderness to palpation in the lumbar paraspinal area diffusely, SLR 5/5 in bilateral lower extremities, minor abrasions to the posterior left thigh without laceration, sensation intact in bilateral lower extremities diffusely, has chronic medial calf neuropathy, no saddle anesthesia NEURO: Mental Status AAOx4 - alert to person, place, time, events No facial droop, no forehead involvement. Motor: No focal weakness - strength 5/5 in bilateral UEs and LEs, proximal and distal, symmetric. Sensory: sensation intact to light touch globally. Gait normal: patient ambulated without ataxia into ED room. PSYCH: euthymic, cooperative, pleasant, appropriate speech Course Vital Signs Vital signs: Vital Signs Temperature 36.4 C 04/23/23 11:11 Pulse 97 H 04/23/23 11:11 Respiratory Rate 18 04/23/23 11:11 Blood Pressure 150/111 H 04/23/23 11:11 Pulse Oximetry 98 04/23/23 11:11 Temperature 36.4 C 04/23/23 11:11 Temperature Source Oral 04/23/23 11:11 Pulse 97 H 04/23/23 11:11 Respiratory Rate 18 04/23/23 11:11 Respiratory Effort Normal 04/23/23 11:12 Blood Pressure 150/111 H 04/23/23 11:11 Blood Pressure Position Sitting 04/23/23 11:11 Pulse Oximetry 98 04/23/23 11:11 Oxygen Delivery Method Room Air 04/23/23 11:11 Oxygen Flow Rate 0 04/23/23 11:11 Pain Level 10 04/23/23 11:13
[2023-04-23] MEDS: Ketorolac 10 MG TAB PO (11:47)
[2023-04-23] MEDS: Lidocaine 5% Patch 1 PATCH TP (11:47)
[2023-04-23] MEDS: predniSONE 20 MG TAB 60 MG PO (11:48)
[2023-04-23] MEDS: Cyclobenzaprine 10 MG TAB PO (11:48)
[2023-04-23] MEDS: Acetaminophen 500 MG TAB 1000 MG PO (11:48)
== END 2023-04-23 12:52 | disposition home or self-care (01) ==
PROVIDERS: Emergency Provider Physician Assistant; PCP Physician Assistant
DX: S89.92XA Unspecified injury of left lower leg, initial encounter (principal); W13.8XXA Fall from, out of or through other building or structure, initial encounter; S39.92XA Unspecified injury of lower back, initial encounter; M54.16 Radiculopathy, lumbar region; G89.29 Other chronic pain; E66.9 Obesity, unspecified; Z68.42 Body mass index [BMI] 45.0-49.9, adult
CPT/HCPCS: 99283; J7512

== ENCOUNTER 2023-10-14 08:10 | Emergency (ER) | payer MEDICARE, SELFPAY ==
[2023-10-14 08:13] VITALS: BP 143/100; PULSE 89; RESP 20; TEMP 36.5; O2SAT 100
--- NOTE | 2023-10-14 08:20 | ED.GENADUL_ITS ---
Discharge Plan Disposition Patient Disposition: Home Condition: Stable Discharge Details Clinical Impression: Closed fracture of left distal fibula Primary Care Provider: Megan Christianson ED Provider: Johnny Alvarado Home Meds and New Rx's Prescriptions: No Action acetaminophen 500 mg capsule 500 mg PO Q6H PRN ibuprofen 200 mg tablet 200 mg PO Q6H PRN Discharge Instructions Instructions: Leg Fracture (ED) Additional Instructions: You were seen in the emergency department for the ankle injury on stairs this morning. You have a fracture at the end of your left distal fibula. You are to use crutches and not put weight on your foot you may toe tap for balance. Please follow-up with your primary care or orthopedics for acute fracture care. Your injury should heal within 6 to 8 weeks. Please use therapeutic dosing of Tylenol (acetamenophen) & Advil (ibuprofen) in an alternating fashion as follows: Take 1000mg of Tylenol every 6 hours without missing doses- that is 4 times per day. [place] in between the Tylenol dosings, take 400-600mg of Advil also on a 6 hour schedule, that is also 4 times per day. The daily maximum dosing of Tylenol is 4000mg, and the daily maximum dosing of Advil is 2400mg. This is safe to do for weeks. Please note that some common cold medications & prescription pain medications may contain acetamenophen and you need to read OTC drug labels and factor that in to maximum daily dosings. Please note, that you were taking too much Tylenol if you are taking 2000 mg at 1 time this is very bad for your liver. Please rest, ice, compress and elevate the leg as often as possible, ice to complete numbness then let rewarm, you may repeat this process as many times as you want. Please return to the emergency department for any severe increase in pain, pain spreading up the leg, complete numbness of the foot. Referrals: [facility] [Provider Group] Megan Christianson [Primary Care Provider] - Discharge Data Discharge Date/Time-TO BE ENTERED AT DEPARTURE: 10/14/23 10:18 HPI General Date/Time Provider Initiated Documentation: 10/14/23 08:20 . HPI Narrative: 42 year-old female presents to ED today by POV/wheelchair from waiting room with a chief complaint of L ankle pain- missed the last step and heard a crunch from her L ankle with onset around 0630 this morning. Quality described as very tender aching pain, focal to the lateral L ankle. Patient is R-side dominant, no radiation to numbness/tingling, calf pain/swelling, bruising, states severe pain with weight-bearing. Severity is described as 8-9/10. Palliating factors include 2000mg Tylenol with some relief. Provoking factors include nothing specific. Patient not anticoagulated. Related Data Home Medications Medication Instructions Recorded Confirmed acetaminophen 500 mg capsule 500 mg PO Q6H PRN 10/05/22 10/14/23 ibuprofen 200 mg tablet 200 mg PO Q6H PRN 10/05/22 10/14/23 Allergies Allergy/AdvReac Type Severity Reaction Status Date / Time codeine Allergy Swelling/Ed Unverified 10/14/23 08:16 stephanie doxycycline Allergy Hives Unverified 10/14/23 08:16 egg Allergy Swelling/Ed Unverified 10/14/23 08:16 stephanie General Stated Complaint: Orthopedic CADEN: 4 Review of Systems All systems reviewed & are unremarkable except as noted in HPI and below Exam Narrative Exam Narrative: GENERAL APPEARANCE: Well-nourished, non-toxic, awake and alert, atraumatic, no acute distress. SKIN: Warm, pink, dry, intact, without rashes/lesions/ulcerations. HEAD: Normocephalic, atraumatic, normal hair distribution for gender/age. EYES: Normal conjunctiva, no exudates on lids/lashes. ENT: Nares patent, no circumoral cyanosis, no facial swelling NECK: Supple, trachea midline, painless cervical ROM. LUNGS/CHEST: Non-labored respirations, normal A/P diameter, symmetrical expansion, no chest wall deformity HEART (CV/PV): Regular rate , L dorsalis pedis pulse 2+, no peripheral edema, no JVD. ABDOMEN: Soft, non-distended, no guarding. MSK: Normal ROM, no swelling/deformity to bilateral UEs or LEs, moving all extremities without weakness, no cyanosis, spine midline without tenderness, normal curvature. L LE: Significant swelling at the lateral malleolus with point tenderness, no tenderness throughout the mid and forefoot, no medial malleoli or tenderness, no ecchymosis, unilateral leg swelling, range of motion intact in the toes, sensation intact, intact pedal pulses NEURO: Mental Status AAOx4 - alert to person, place, time, events No facial droop, no forehead involvement. Motor: No focal weakness - strength 5/5 in bilateral UEs and LEs, proximal and distal, symmetric. Sensory: sensation intact to light touch globally. Gait nNT. PSYCH: euthymic, cooperative, pleasant, appropriate speech Course Vital Signs Vital signs: Vital Signs Temperature 36.5 C 10/14/23 08:13 Pulse 89 10/14/23 08:13 Respiratory Rate 20 10/14/23 08:13 Blood Pressure 143/100 H 10/14/23 08:13 Pulse Oximetry 100 10/14/23 08:13 Temperature 36.5 C 10/14/23 08:13 Temperature Source Temporal Artery Scan 10/14/23 08:13 Pulse 89 10/14/23 08:13 Respiratory Rate 20 10/14/23 08:13 Respiratory Effort Normal, Non-Labored 10/14/23 08:17 Blood Pressure 143/100 H 10/14/23 08:13 Blood Pressure Position Sitting 10/14/23 08:13 Pulse Oximetry 100 10/14/23 08:13 Oxygen Delivery Method Room Air 10/14/23 08:13 Oxygen Flow Rate 0 10/14/23 08:13 Medical Decision Making This dictation utilizes [id number] dictation software and may contain unedited grammatical errors. 42 y/o F presents to ED today with a chief complaint of L ankle pain, missed the last step going down stairs at 0630 this morning, felt a crunch in L ankle, has lateral ankle pain only. R-side dominant, not weight-bearing due to pain. Patient took 2000mg Tylenol after injury. Patients' medical history: Muscle weakness, obesity. Family and social history: noncontributory. Pertinent exam findings / vital signs include L LE: Significant swelling at the lateral malleolus with point tenderness, no tenderness throughout the mid and forefoot, no medial malleoli or tenderness, no ecchymosis, unilateral leg swelling, range of motion intact in the toes, sensation intact, intact pedal pulses. Differential / pathologies of concern include Fracture, Sprain/Strain, Contusion, Ligamentous injury of ankle. Diagnostic studies of: -XR L Ankle- shows lateral malleolar fracture of distal fibula Interventions of: -Crutches and walking boot. ED Course/Assessment/Plan: 43-year-old female had a left ankle injury this morning, missed the last step descending a staircase. [place] a crunch from her ankle, has left lateral malleolar swelling with confirmed distal fibula fracture on x-ray, there is no sign of bimalleolar or trimalleolar fracture. I counseled her on RICE therapy as well as therapeutic dosing of Tylenol and ibuprofen as she had taken too much Tylenol this morning. Provided a walking boot and crutches advised follow-up with routine x-rays via primary care and possibly orthopedic referral for any complications. Strict return criteria for any signs of neurovascular compromise distal to the injury, severe increase in calf swelling and pain. Findings not consistent with neurovascular compromise. Disposition of Closed Fracture of Left Distal Fibula. Patient verbalized understanding of the plan and return to ED criteria and engaged in shared decision making. Medical Records Medical records reviewed: Yes I reviewed the patient's medical records. Imaging Data Radiologic Study: Attestation: I personally reviewed and interpreted this imaging study as follows: Imaging: X-Ray Radiologist's impression: EXAM: XR ANKLE LT COMPLETE CLINICAL HISTORY: L ankle pain, lateral malleolar swelling. TECHNIQUE: 2D digital imaging was performed. COMPARISON: No exams were available for comparison FINDINGS: 3 views There is a nondisplaced transverse fracture of the tip of the lateral malleolus with abundant overlying soft swelling. No widening of the ankle mortise. Talar dome unremarkable. No osseous lesions evident Tiny inferior calcaneal spur noted as well as small enthesophyte on the posterior calcaneus Achilles insertion site IMPRESSION: Acute transverse fracture of the inferior aspect of the lateral malleolus with abundant overlying soft tissue swelling. Quality:SDOH Health Related Social Needs: No Data to Display PFSH All Active Problems (Updated 10/14/23 @ 09:09 by DARIANA Lundberg) Closed fracture of left distal fibula (Acute) Lumbar radiculopathy (Acute) Medical History Chest pain Chronic pain Class 3 severe obesity due to excess calories with body mass index (BMI) of 40.0 to 44.9 in adult Depression Dyspnea Endometriosis Epigastric pain alcohol syndrome GERD (gastroesophageal reflux disease) Hiatal hernia Hypertriglyceridemia Insomnia Irregular heart beat Limited literacy Migraines Muscle weakness Post-operative nausea and vomiting PUD (peptic ulcer disease) Transfusion history Vitamin B12 deficiency Vitamin D deficiency Surgical History H/O laparoscopy H/O tubal ligation History of hysterectomy Hx of cholecystectomy Social History Smoking/Tobacco Use Status: Current every day Tobacco Type: cigarettes Smoking risk assessment performed?: Yes Alcohol Intake: never Drug use: Never Substance use type: does not use Housing: house Do you feel safe in your relationship?: Yes
--- NOTE | 2023-10-14 08:44 | DI.RAD_ITS ---
Exam(s) XR ANKLE LT COMPLETE EXAM: XR ANKLE LT COMPLETE CLINICAL HISTORY: L ankle pain, lateral malleolar swelling. TECHNIQUE: 2D digital imaging was performed. COMPARISON: No exams were available for comparison FINDINGS: 3 views There is a nondisplaced transverse fracture of the tip of the lateral malleolus with abundant overlyi ng soft swelling. No widening of the ankle mortise. Talar dome unremarkable. No osseous lesions ev ident Tiny inferior calcaneal spur noted as well as small enthesophyte on the posterior calcaneus Achilles insertion site IMPRESSION: Acute transverse fracture of the inferior aspect of the lateral malleolus with abundant overlying sof t tissue swelling. DATA REPOSITORY: RADIATION DOSE DELIVERED:
== END 2023-10-14 10:18 | disposition home or self-care (01) ==
PROVIDERS: Emergency Provider Physician Assistant; PCP Physician Assistant
DX: S82.832A Other fracture of upper and lower end of left fibula, initial encounter for closed fracture (principal); W10.8XXA Fall (on) (from) other stairs and steps, initial encounter
CPT/HCPCS: 27786; 29515; 99283; 73610

== ENCOUNTER 2024-03-20 18:19 | Emergency (ER) | payer MEDICARE, SELFPAY ==
[2024-03-20] VITALS (13 sets, daily range): BP systolic 100–156; BP diastolic 58–132; PULSE 85–101; RESP 8–20; TEMP 36.6–37.1; O2SAT 95–100
--- NOTE | 2024-03-20 18:30 | DI.CT_ITS ---
Exam(s) CT HEAD CERVICAL SPINE WO EXAM: CT HEAD CERVICAL SPINE WO CLINICAL HISTORY: Weakness, right arm radiculopathy. TECHNIQUE: Imaging Protocol: Axial computed tomography images with coronal and sagittal reformatted images were created and reviewed COMPARISON: CT CT HEAD WO from 01/21/2022 FINDINGS: CT Head: Ventricles and Extra axial spaces: Normal in size and morphology for the patient's age. Hemorrhage: None. Cerebral parenchyma: No evidence of an acute territorial infarct. No mass effect. Midline shift: None. Brainstem/Cerebellum: Normal. Calvarium: Normal. Visualized Paranasal sinuses/Mastoids: Mucosal thickening is seen in several of the paranasal sinuses . No fluid levels are seen. Soft Tissues: Unremarkable. CT Cervical Spine: Bones: No acute fracture or subluxation. There is mild reversal of the normal cervical lordosis cente red at C5-C6. There is disc space narrowing and endplate osteophytes seen at C5-C6. There is mild d isc space narrowing at C6-C7. The disc spaces are otherwise well maintained. The facet joints are u nremarkable. No significant central spinal canal or neural foraminal stenosis is seen. Soft Tissues: Unremarkable. Lung Apices: Clear. IMPRESSION: 1. No acute intracranial process. 2. No acute fracture or subluxation in the cervical spine. 3. No significant central spinal canal or neural foraminal stenosis is seen. If there is continued c linical concern, an MRI of the cervical spine should be obtained. RADIATION DOSE DELIVERED: 1,335.45mGy.cm Total DLP DATA REPOSITORY: All CT scans at this facility are submitted to the National Radiology Data Registry (NRDR) Dose Index Registry (DIR) with the [employer] (ACR). RADIATION OPTIMIZATION: All CT scans at this facility use at least one of these dose optimization te chniques: automated exposure control; mA and/or kV adjustment per patient size (includes targeted exa ms where dose is matched to clinical indication); or iterative reconstruction.
--- NOTE | 2024-03-20 18:35 | W.ED.GENAD ---
Discharge Plan Disposition Patient Disposition: Home Condition: Stable Discharge Details Clinical Impression: Cervical radiculopathy at C6 Primary Care Provider: Megan Christianson ED Provider: Kareen Lala Home Meds and New Rx's Prescriptions: New lidocaine 5 % adhesive patch,medicated 1 patch topical DAILY PRNQty: 15 0RF Rx Instructions: leave on most painful area for up to 12 hrs cyclobenzaprine 10 mg tablet 10 mg PO TID PRN (Reason: muscle spasm) Qty: 10 0RF Rx Instructions: Take 1 tablet up to 3 times daily as needed for muscle spasm No Action acetaminophen 500 mg capsule 500 mg PO Q6H PRN ibuprofen 200 mg tablet 200 mg PO Q6H PRN fexofenadine [Pati Allergy] 180 mg tablet 180 mg PO DAILY PRN Discharge Instructions Instructions: Neck Stretches, Radiculopathy of the neck and back (including sciatica) Additional Instructions: CT shows some disc narrowing between C5-C6-C7 I do believe this is what is causing your arm pain. Labs are largely unremarkable. Follow up with primary care provider in 3-5 days. Return to ED sooner if any worsening or concerns. Please take Tylenol or Ibuprofen with food every 4-6 hours as needed for pain and swelling. Please take the Flexeril and lidocaine patches as prescribed. Alternate ice and heat. Consider physical therapy or chiropractor and massage. Referrals: Megan Christianson [Primary Care Provider] - 5 days HPI General Mode of arrival: ambulatory. Date/Time Provider Initiated Documentation: 03/20/24 18:19. Limitations to Documentation: no limitations. Information obtained by: patient, RN notes reviewed and old records reviewed. HPI Narrative: 43-year-old female presents to the ER with a chief complaint of leg weakness which began a few days ago while cutting some batteries and some decorations. She now states that her right arm is in pain. She is having a hard time turning her neck. She does have a history of 2 herniated disks. She is also reporting nausea. She denies any chest pain shortness of breath headache or changes in vision. She has no focal neurodeficits noted on exam. She is a daily smoker, does have a history of obesity and poor dentition. She has been taking Tylenol ibuprofen for pain. Related Data Home Medications ?Medication ?Instructions ?Recorded ?Confirmed acetaminophen 500 mg capsule 500 mg PO Q6H PRN 10/05/22 03/20/24 ibuprofen 200 mg tablet 200 mg PO Q6H PRN 10/05/22 03/20/24 cyclobenzaprine 10 mg tablet 10 mg PO TID PRN muscle spasm #10 03/20/24 tabs fexofenadine 180 mg tablet 180 mg PO DAILY PRN 03/20/24 03/20/24 (Pati Allergy) lidocaine 5 % topical patch 1 patch topical DAILY PRN #15 ea 03/20/24 Previous Rx's ?Medication ?Instructions ?Recorded cyclobenzaprine 10 mg tablet 10 mg PO TID PRN muscle spasm #10 03/20/24 tabs lidocaine 5 % topical patch 1 patch topical DAILY PRN #15 ea 03/20/24 Allergies Allergy/AdvReac Type Severity Reaction Status Date / Time codeine Allergy Swelling/Ed Unverified 03/20/24 18:27 stephanie doxycycline Allergy Hives Unverified 03/20/24 18:27 egg Allergy Swelling/Ed Unverified 03/20/24 18:27 stephanie General Stated Complaint: GenMedical CDAEN: 3 Review of Systems All systems reviewed & are unremarkable except as noted in HPI and below Constitutional Constitutional: Reports as per HPI and Reports weakness ENT Ears, Nose, Mouth, and Throat: Reports neck pain Musculoskeletal Musculoskeletal: Reports as per HPI, Reports back pain, Reports neck pain and Reports radiating pain into limb Neurologic Neurologic: Reports weakness Exam Narrative Exam Narrative: Constitutional: Alert and oriented x3. Appears older than stated age. Obese body habitus. Head: Normocephalic, no trauma. Eyes: Pupils PERRL, Red reflex noted, EOM's intact. Eyelids symmetrical without lesions, discharge, or swelling. ENT: Bilateral TM's WNL, External ear normal to inspection, no mastoid TTP, swelling, or erythema, Nasal turbinates WNL, no nasal discharge. Poor dentition, Posterior pharynx WNL, no exudate. Chest: RRR, Normal S1, S2, distal pulses intact. Resp: Lungs clear to auscultation bilaterally, no wheezes, rales, or rhonchi. Abdomen: Soft, non-distended, Normoactive bowel sounds all 4 quads. Musculoskeletal: Normal gait, Moves all 4 extremities without difficulty. Skin: No suspicious rashes or lesions. Capillary refill less than 2 sec. Neurologic: Cranial nerves II-XII intact. Alert and oriented x 3. Motor: No deficits noted. Sensory: Intact bilaterally all 4 extremities. No leg drop, reconciliation coordinator equal bilaterally, intact dorsal and pedal flexion extension, no facial droop. Hematologic/Lymphatic: No ecchymosis, no lymphadenopathy. Course Vital Signs Vital signs: Vital Signs Temperature 36.6 C 03/20/24 18:21 Pulse 101 H 03/20/24 18:21 Respiratory Rate 16 03/20/24 18:21 Blood Pressure 156/132 H 03/20/24 18:21 Pulse Oximetry 100 03/20/24 18:21 Temperature 36.6 C 03/20/24 18:21 Temperature Source Oral 03/20/24 18:21 Pulse 101 H 03/20/24 18:21 Respiratory Rate 16 03/20/24 18:21 Blood Pressure 156/132 H 03/20/24 18:21 Blood Pressure Position Sitting 03/20/24 18:21 Pulse Oximetry 100 03/20/24 18:21 Oxygen Delivery Method Room Air 03/20/24 18:21 Oxygen Flow Rate 0 03/20/24 18:21 Pain Level 9 03/20/24 18:21 Medical Decision Making 43-year-old female presents to the ER with a chief complaint of leg weakness which began a few days ago while cutting some batteries and some decorations. She now states that her right arm is in pain. She is having a hard time turning her neck. She does have a history of 2 herniated disks. She is also reporting nausea. She denies any chest pain shortness of breath headache or changes in vision. She has no focal neurodeficits noted on exam. She is a daily smoker, does have a history of obesity and poor dentition. She has been taking Tylenol ibuprofen for pain. CT head and C-spine without ordered, I do suspect musculoskeletal involvement as it is radiculopathy type pain from cervicalgia and she has having a hard time turning her neck. CBC CMP ordered will give lidocaine patch Flexeril and Zofran. Labs are largely unremarkable. CT shows reversal of normal cervical lordosis, disc space narrowing around C5 C6-C7. No central foraminal stenosis noted. Discussed results with patient and family verbalized understanding. Patient given Flexeril discharged home. This text was generated using Nuance dictation system, please disregard any oddities of phrase or misspellings. Imaging Data Radiologic Study: Imaging: CT Scan Radiologist's impression: CT Head: Ventricles and Extra axial spaces: Normal in size and morphology for the patient's age. Hemorrhage: None. Cerebral parenchyma: No evidence of an acute territorial infarct. No mass effect. Midline shift: None. Brainstem/Cerebellum: Normal. Calvarium: Normal. Visualized Paranasal sinuses/Mastoids: Mucosal thickening is seen in several of the paranasal sinuses. No fluid levels are seen. Soft Tissues: Unremarkable. CT Cervical Spine: Bones: No acute fracture or subluxation. There is mild reversal of the normal cervical lordosis centered at C5-C6. There is disc space narrowing and endplate osteophytes seen at C5-C6. There is mild disc space narrowing at C6-C7. The disc spaces are otherwise well maintained. The facet joints are unremarkable. No significant central spinal canal or neural foraminal stenosis is seen. Soft Tissues: Unremarkable. Lung Apices: Clear. IMPRESSION: 1. No acute intracranial process. 2. No acute fracture or subluxation in the cervical spine. 3. No significant central spinal canal or neural foraminal stenosis is seen. If there is continued clinical concern, an MRI of the cervical spine should be obtained. Lab Data Lab results reviewed: Yes I reviewed the patient's lab results. Labs: Laboratory Tests Range/Units 03/20/24 18:58 WBC (4.4-10.8) 10^3/uL 9.96 RBC (3.93-5.22) 10^6/uL 4.76 Hgb (11.2-15.7) g/dL 14.4 Hct (36.0-46.0) % 43.5 MCV (80-95) fL 91 MCH (27.0-33.0) pg 30.3 MCHC (32.0-36.0) % 33.1 RDW (11.7-14.6) % 12.4 Plt Count (130-400) 10^3/uL 249 MPV (8.0-11.0) fL 9.3 Immature Gran % % 0.4 Neutrophils % % 56.5 Lymphocytes % % 35.3 Monocytes % % 6.0 Eosinophils % % 1.3 Basophils % % 0.5 Nucleated RBC % (0.0-0.3) % 0.0 Absolute Neutrophils (1.2-6.7) 10^3/uL 5.62 Absolute Lymphocytes (1.2-3.4) 10^3/uL 3.52 H Absolute Monocytes (0.1-0.8) 10^3/uL 0.60 Absolute Eosinophils (0.0-0.7) 10^3/uL 0.13 Absolute Basophils (0.0-0.2) 10^3/uL 0.05 Sodium (136-145) mmol/L 140 Potassium (3.5-5.1) mmol/L 4.0 Chloride (98-107) mmol/L 104 Carbon Dioxide (21.0-32.0) mmol/L 30.8 Anion Gap (3-11) mmol/L 5.2 BUN (7-18) mg/dL 9 Creatinine (0.55-1.02) mg/dL 0.9 Est GFR (CKD-EPI 2020) (mL/min/1.73m2) 81.35 Glucose (74-106) mg/dL 95 Calcium (8.5-10.1) mg/dL 9.3 Total Bilirubin (0.2-1.0) mg/dL 0.30 AST (15-37) U/L 14 L ALT (14-59) U/L 26 Alkaline Phosphatase (46-116) U/L 115 Total Protein (6.4-8.2) g/dL 7.6 Albumin (3.4-5.0) g/dL 3.7 Quality:SDOH Health Related Social Needs: No Data to Display PFSH All Active Problems (Updated 03/20/24 @ 20:06 by Kareen Lala NP) Cervical radiculopathy at C6 (Acute) Lumbar radiculopathy (Acute) Medical History Muscle weakness Insomnia Epigastric pain Dyspnea Chest pain Vitamin B12 deficiency Vitamin D deficiency Hypertriglyceridemia Limited literacy Migraines Depression Class 3 severe obesity due to excess calories with body mass index (BMI) of 40.0 to 44.9 in adult Endometriosis Transfusion history Post-operative nausea and vomiting PUD (peptic ulcer disease) Irregular heart beat alcohol syndrome Chronic pain Hiatal hernia GERD (gastroesophageal reflux disease) Surgical History H/O tubal ligation H/O laparoscopy Hx of cholecystectomy History of hysterectomy Social History Smoking/Tobacco Use Status: Current every day Tobacco Type: cigarettes Smoking risk assessment performed?: Yes Alcohol Intake: never Drug use: Never Substance use type: does not use Housing: house Do you feel safe in your relationship?: Yes
[2024-03-20] MEDS: Cyclobenzaprine 10 MG TAB PO (18:51)
[2024-03-20] MEDS: Lidocaine 5% Patch 1 PATCH TP (18:51)
[2024-03-20] MEDS: Ondansetron 4 MG/2 ML VIAL IVP (18:51)
[2024-03-20 19:06] LABS: Abs Immature Grans 0.04 10^3/uL (0.0-0.06); Absolute Basophil Count 0.05 10^3/uL (0.0-0.2); Absolute Eosinophil Count 0.13 10^3/uL (0.0-0.7); Absolute Lymphocyte Count 3.52 10^3/uL (1.2-3.4); Absolute Neutrophil Count 5.62 10^3/uL (1.2-6.7); Basophils % 0.5 %; Eosinophils % 1.3 %; HCT 43.5 % (36.0-46.0); HGB 14.4 g/dL (11.2-15.7); Immature Grans % 0.4 %; Lymphocytes % 35.3 %; MCH 30.3 pg (27.0-33.0); MCHC 33.1 % (32.0-36.0); MCV 91 fL (80-95); MPV 9.3 fL (8.0-11.0); Neutrophils % 56.5 %; Platelet Count 249 10^3/uL (130-400); RBC 4.76 10^6/uL (3.93-5.22); RDW 12.4 % (11.7-14.6); RDW-SD 41.4 fL; WBC 9.96 10^3/uL (4.4-10.8)
[2024-03-20 19:18] LABS: ALT 26 U/L (14-59); AST 14 U/L (15-37); Albumin 3.7 g/dL (3.4-5.0); Alkaline Phosphatase 115 U/L (46-116); Anion Gap 5.2 mmol/L (3-11); BUN 9 mg/dL (7-18); CO2 30.8 mmol/L (21.0-32.0); CREATININE 0.9 mg/dL (0.55-1.02); Calcium 9.3 mg/dL (8.5-10.1); Chloride 104 mmol/L (98-107); Estimated GFR 81.35 (mL/min/1.73m2); Glucose 95 mg/dL (74-106); Sodium 140 mmol/L (136-145); Total Protein 7.6 g/dL (6.4-8.2)
[2024-03-20] MEDS: Cyclobenzaprine 10 MG TAB, 3 TABS/BTL PO (20:08)
== END 2024-03-20 20:20 | disposition home or self-care (01) ==
PROVIDERS: Emergency Provider Registered Nurse Emergency; PCP Physician Assistant
DX: R53.1 Weakness (principal); M54.12 Radiculopathy, cervical region; F17.210 Nicotine dependence, cigarettes, uncomplicated
CPT/HCPCS: 80053; 96374; 99284; 70450; 72125; 85025; J2405